=== PATIENT | male | born 1970 | race Caucasian/White ===

== ENCOUNTER 2017-07-06 02:23 | Emergency (ER) | payer SELFPAY ==
[2017-07-06 02:33] VITALS: BP 146/90
[2017-07-06] MEDS ORDERED: Bacitracin Oint 1 GM U/D Packet TOP ONE (03:07)
[2017-07-06] MEDS ORDERED: Diphtheria,Pertussis(Acell),Tetanus Vaccine 0.5 ML SDV IM ONE (03:08)
--- NOTE | 2017-07-06 03:13 | EDM.PDOCBH ---
ED HPI GENERAL MEDICAL PROBLEM - General Chief Complaint: Drug or Alcohol Abuse Stated Complaint: MED[facility] Time Seen by Provider: 07/06/17 03:07 Source of Information: Reports: Patient, EMS History Limitations: Reports: Intoxication - History of Present Illness INITIAL COMMENTS - FREE TEXT/NARRATIVE: This patient arrived by EMS after he was found on the ground apparently in an alley had been drinking heavily it's not certain if he does fell because he is intoxicated articulated hit his head. He does have some lacerations to his forehead. Denies Pain Score (Numeric/FACES): 0 - Related Data Allergies Allergy/AdvReac Type Severity Reaction Status Date / Time No Known Allergies Allergy Verified 07/06/17 02:34 Home Meds: Home Meds NK [No Known Home Meds] 07/06/17 [History] Past Medical History Musculoskeletal History: Reports: Fracture Other Musculoskeletal History: Multiple fx Neurological History: Reports: Concussion - Past Surgical History HEENT Surgical History: Reports: Other (See Below) Other HEENT Surgeries/Procedures: Throat abcess Social & Family History - Tobacco Use Smoking Status *Q: Current Every Day Smoker Years of Tobacco use: 20 Packs/Tins Daily: 1 Used Tobacco, but Quit: No Second Hand Smoke Exposure: Yes - Caffeine Use Caffeine Use: Reports: Coffee, Soda - Alcohol Use Days Per Week of Alcohol Use: 7 Number of Drinks Per Day: 5 Total Drinks Per Week: 35 Date of Last Drink: 07/05/17 Time of Last Drink: 23:50 - Recreational Drug Use Recreational Drug Use: No ED ROS GENERAL - Review of Systems Review Of Systems: ROS reveals no pertinent complaints other than HPI. ED EXAM, BEHAVIORAL HEALTH - Physical Exam Exam: See Below Exam Limited By: No Limitations General Appearance: Alert, No Apparent Distress, Other (Heavy alcohol odor.) Eye Exam: Bilateral Eye: EOMI, PERRL Ears: Normal External Exam Nose: Normal Inspection Throat/Mouth: Normal Inspection Head: Other (There is a laceration to the right side of the for head over the lateral canthus. It's approximately 2.5 cm long. Mostly it is vertical.) Neck: Normal Inspection, Full Range of Motion Respiratory/Chest: Lungs Clear Cardiovascular: Regular Rate, Rhythm, No Murmur GI/Abdominal: Non-Tender Neurological: Alert, Normal Mood/Affect, CN II-XII Intact, Other (Appears mildly intoxicated) Psychiatric: Alert, Normal Affect, Normal Mood COURSE, BEHAVIORAL HEALTH COMP - Course Vital Signs: Last Vital Signs Temp 36.6 C 07/06/17 02:32 Pulse 86 07/06/17 02:32 Resp 16 07/06/17 02:32 BP 146/90 H 07/06/17 02:32 Pulse Ox 95 07/06/17 02:32 Orders, Labs, Meds: Active Orders 24 hr Category Date Time Status Vaccines to be Administered [RC] PER UNIT ROUTINE Care 07/06/17 03:08 Active Medications Discontinued Medications Generic Name Dose Route Start Last Admin Trade Name Edith PRN Reason Stop Dose Admin Bacitracin 2 dose 07/06/17 03:07 07/06/17 03:24 Bacitracin Oint 1 Gm TOP 07/06/17 03:08 2 dose ONETIME ONE Administration Diphtheria/Tetanus/Acell Pertussis 0.5 ml 07/06/17 03:08 07/06/17 03:22 Adacel IM 07/06/17 03:09 0.5 ml .ONCE ONE Administration Re-Assessment/Re-Exam: The 2.5 cm laceration to the right side of the forehead was lavaged with normal saline and then closed with Dermabond Departure - Departure Time of Disposition: 03:11 Disposition: Home, Self-Care 01 Clinical Impression: Facial laceration, Alcohol intoxication - Discharge Information Instructions: Alcohol Use Disorder, Facial Laceration, [id number] Referrals: PCP,None [Primary Care Provider] - Forms: ED Department Discharge Additional Instructions: Leave the glue on for the next 5 days Avoid excess alcohol intake - My Orders Last 24 Hours: My Active Orders 07/06/17 03:08 Vaccines to be Administered [RC] PER UNIT ROUTINE - Assessment/Plan Last 24 Hours: My Active Orders 07/06/17 03:08 Vaccines to be Administered [RC] PER UNIT ROUTINE
== END 2017-07-06 03:27 | disposition home or self-care (01) ==
LOC: JP.ED 02:23
DX: S01.81XA Laceration without foreign body of other part of head, initial encounter (principal); F10.129 Alcohol abuse with intoxication, unspecified; F17.210 Nicotine dependence, cigarettes, uncomplicated; Z23 Encounter for immunization; W19.XXXA Unspecified fall, initial encounter
CPT/HCPCS: 12011; 90471; 90715; 99283-25

== ENCOUNTER 2024-07-29 07:39 | Day surgery (SDC) | payer MEDICAID ==
[2024-07-29] MEDS: Sodium Chloride 0.9% 1,000 ML IV SCH (08:23)
[2024-07-29] MEDS ORDERED: Midazolam 1 MG/ML 2 ML SDV ONE (08:33)
[2024-07-29] MEDS ORDERED: fentaNYL 50 MCG/ML SDV ONE (08:33)
[2024-07-29] MEDS ORDERED: Propofol 200 MG/20 ML SDV ONE ×2 (08:33→10:35)
[2024-07-29 11:40] VITALS: BP 153/91; PULSE 75
== END 2024-07-29 12:13 | disposition home or self-care (01) ==
LOC: JP.SDS 07:39
PROVIDERS: ATTEND Surgery
DX: Z12.11 Encounter for screening for malignant neoplasm of colon (principal); D12.3 Benign neoplasm of transverse colon; D12.4 Benign neoplasm of descending colon; K62.1 Rectal polyp; R19.5 Other fecal abnormalities; K57.30 Diverticulosis of large intestine without perforation or abscess without bleeding; E66.9 Obesity, unspecified; F17.210 Nicotine dependence, cigarettes, uncomplicated
CPT/HCPCS: 00811; 45385; 88305; J2250; J2704; J3010; J7030